=== PATIENT | female | born 1955 | race African-American/Black ===

== ENCOUNTER 2019-05-23 13:19 | Inpatient (IN) ==
[2019-05-23 15:11] LABS: Basophils % 0.5 % (0.0-0.8); Eosinophils % 0.9 % (0.00-10.9); Hematocrit 38.2 VOL% (35.7-47.0); Immature Granulocytes % 0.9 %; Immature Granulocytes Absolute 0.04 #; Lymphocytes # 1.3 10*3/uL (1.4-4.0); Mean Corpuscular HGB Conc 31.4 GM/DL (32-36); Mean Platelet Volume 10.7 FL (9.6-12.0); Monocytes % 9.6 % (1.7-12.7); Neutrophils % 58.1 % (38.7-73.9); Platelet Count 185 T/CUMM (130-400); Red Blood Count 4.44 MC/CUMM (3.8-5.5); Red Cell Distribution Width 12.6 % (9.3-17.3); White Blood Count 4.3 T/CUMM (4-12)
[2019-05-23 16:44] LABS: Alanine Aminotransferase 17 U/L (13-56); Albumin 1.1 G/DL (3.4-5.0); Alkaline Phosphatase 97 U/L (45-117); Aspartate Amino Transferase 45 U/L (0-37); Bilirubin,Total < 0.39 MG/DL (0.2-1.0); Blood Urea Nitrogen 59 MG/DL (7-18); Calcium 6.6 MG/DL (8.5-10.1); Estimated Glom Filtration Rate 14 ML/MIN; Glucose 157 MG/DL (74-106); Osmolality,Calculated 296.5 MOS/KG (273-304); Total Protein 4.8 G/DL (6.4-8.3)
[2019-05-23 17:10] LABS: Band Neutrophils 2 % (0-10); Lymphocytes 23 % (20-55); Platelet Estimate Normal; Segmented Neutrophils 62 % (50-85); Total Cells Counted 100
[2019-05-23] MEDS ORDERED: hydrALAZINE 20 MG/1 ML VIAL IV PRN (17:50)
[2019-05-23] MEDS ORDERED: DEXTROSE 10% 250 ML BAG IV PRN (17:50)
[2019-05-23] MEDS ORDERED: DEXTROSE 50% 25 GM/50 ML VIAL IV PRN (17:50)
[2019-05-23] MEDS ORDERED: ONDANSETRON 4 MG/2 ML VIAL IV PRN (17:50)
[2019-05-23] MEDS ORDERED: ACETAMINOPHEN 325 MG TABLET PO PRN (17:50)
[2019-05-23] MEDS ORDERED: GLUCAGON 1 MG VIAL IM PRN ×2 (17:50)
[2019-05-23] MEDS ORDERED: AZITHROMYCIN INJ 500 MG in SODIUM CHLORIDE 0.9% 250 ML IV SCH (18:00)
[2019-05-23] MEDS ORDERED: predniSONE 5 MG TABLET PO PRN (18:15)
[2019-05-23] MEDS ORDERED: AZITHROMYCIN 250 MG TABLET PO ONE (21:00)
[2019-05-23] MEDS ORDERED: AZITHROMYCIN 250 MG TABLET PO SCH (21:00)
[2019-05-23] MEDS ORDERED: lisinopriL 20 MG TABLET PO SCH (21:00)
[2019-05-23] MEDS: traZODone 50 MG TABLET PO SCH (22:48)
[2019-05-23] MEDS: SODIUM CHLORIDE 0.9% 1,000 ML IV SCH (22:48)
[2019-05-23] MEDS: PANTOPRAZOLE 40 MG TABLET PO SCH (22:49)
[2019-05-23] MEDS: ISOSORBIDE DINITRATE 20 MG TABLET PO SCH (22:49)
[2019-05-23] MEDS: LATANOPROST 0.005% OPH SOLN 2.5 ML BOTTLE BOTH EYES SCH (22:50)
[2019-05-23] MEDS: cefTRIAXone 1,000 MG in SYRINGE 1 EACH IV SCH (22:52)
[2019-05-23] MEDS: INSULIN LISPRO 100 UNIT/ML SUBCUT SCH (23:01)
[2019-05-23] MEDS: INSULIN GLARGINE 100 UNIT/ML SUBCUT SCH (23:01)
[2019-05-23] MEDS: HEPARIN 5,000 UNIT/1 ML VIAL SUBCUT SCH (23:02)
[2019-05-24 04:06] LABS: ABG Base Excess -5.5 MMOL/L (-2.5-2.5); ABG HCO3 19.9 MMOL/L (20-26); ABG Oxygen Saturation 94.6 % (95-100); ABG PCO2 30.4 MM HG (35-48); ABG PO2 99.9 MM HG (80-95); ABG TCO2 16.3 MMOL/L (23-27)
[2019-05-24 05:49] LABS: Basophils % 0.4 % (0.0-0.8); Eosinophils % 0.4 % (0.00-10.9); Hemoglobin 12.1 GM/DL (12.0-16.0); Immature Granulocytes % 0.7 %; Immature Granulocytes Absolute 0.03 #; Lymphocytes # 1.2 10*3/uL (1.4-4.0); Mean Corpuscular HGB Conc 31.8 GM/DL (32-36); Mean Corpuscular Volume 83.9 FL (87-102); Mean Platelet Volume 10.7 FL (9.6-12.0); Monocytes % 9.7 % (1.7-12.7); Neutrophils % 62.8 % (38.7-73.9); Platelet Count 219 T/CUMM (130-400); Red Blood Count 4.53 MC/CUMM (3.8-5.5); Red Cell Distribution Width 12.6 % (9.3-17.3); White Blood Count 4.5 T/CUMM (4-12)
[2019-05-24 06:19] LABS: Eosinophils 1 % (0-10); Lymphocytes 22 % (20-55); Platelet Estimate Adequate; Segmented Neutrophils 62 % (50-85); Total Cells Counted 100
[2019-05-24 06:20] LABS: Alanine Aminotransferase 22 U/L (13-56); Alkaline Phosphatase 94 U/L (45-117); Aspartate Amino Transferase 41 U/L (0-37); Bilirubin,Total < 0.39 MG/DL (0.2-1.0); Blood Urea Nitrogen 65 MG/DL (7-18); Calcium 7.3 MG/DL (8.5-10.1); Estimated Glom Filtration Rate 11 ML/MIN; Glucose 164 MG/DL (74-106); HDL Cholesterol 22 MG/DL (40-60); Osmolality,Calculated 295.8 MOS/KG (273-304); Risk Ratio 8.59; Total Protein 5.4 G/DL (6.4-8.3); Triglycerides 398 MG/DL (2-150); VLDL CHOLESTEROL 79.6 MG/DL
[2019-05-24] MEDS: HEPARIN 5,000 UNIT/1 ML VIAL SUBCUT SCH ×3 (06:23→22:10)
[2019-05-24] MEDS ORDERED: POTASSIUM CHLORIDE 20 MEQ TABLET PO ONE ×2 (06:42→12:00)
[2019-05-24] MEDS ORDERED: POTASSIUM CHLORIDE 20 MEQ/15 ML UDCUP PER TUBE PRN (08:11)
[2019-05-24] MEDS ORDERED: PANTOPRAZOLE 40 MG TABLET PO SCH (09:00)
[2019-05-24] MEDS ORDERED: LEFLUNOMIDE 10 MG TABLET PO SCH (09:00)
[2019-05-24] MEDS: CITALOPRAM 20 MG TABLET PO SCH (09:12)
[2019-05-24] MEDS: ROSUVASTATIN 20 MG TABLET PO SCH (09:13)
[2019-05-24] MEDS: CLOPIDOGREL 75 MG TABLET PO SCH (09:13)
[2019-05-24] MEDS: INSULIN LISPRO 100 UNIT/ML SUBCUT SCH ×3 (09:13→17:26)
[2019-05-24] MEDS: ISOSORBIDE DINITRATE 20 MG TABLET PO SCH ×3 (09:13→22:10)
[2019-05-24] MEDS: PANTOPRAZOLE 40 MG TABLET PO SCH ×2 (09:13→22:10)
[2019-05-24] MEDS: SODIUM CHLORIDE 0.9% 1,000 ML IV SCH ×2 (09:22→22:05)
[2019-05-24] MEDS: cefTRIAXone 1,000 MG in SYRINGE 1 EACH IV SCH (22:10)
[2019-05-24] MEDS: traZODone 50 MG TABLET PO SCH (22:10)
[2019-05-24] MEDS: AZITHROMYCIN 250 MG TABLET PO SCH (22:10)
[2019-05-24] MEDS: LATANOPROST 0.005% OPH SOLN 2.5 ML BOTTLE BOTH EYES SCH (22:10)
[2019-05-24] MEDS: INSULIN GLARGINE 100 UNIT/ML SUBCUT SCH (23:07)
[2019-05-25 05:48] LABS: Basophils % 0.5 % (0.0-0.8); Eosinophils # 0.1 10*3/uL (0.0-0.87); Eosinophils % 2.4 % (0.00-10.9); Hematocrit 34.5 VOL% (35.7-47.0); Hemoglobin 10.7 GM/DL (12.0-16.0); Immature Granulocytes % 2.9 %; Immature Granulocytes Absolute 0.12 #; Lymphocytes # 1.3 10*3/uL (1.4-4.0); Lymphocytes % 31.3 % (21.3-54.2); Mean Corpuscular Volume 86.9 FL (87-102); Mean Platelet Volume 10.4 FL (9.6-12.0); Monocytes % 8.7 % (1.7-12.7); Neutrophils % 54.2 % (38.7-73.9); Platelet Count 240 T/CUMM (130-400); Red Blood Count 3.97 MC/CUMM (3.8-5.5); Red Cell Distribution Width 12.9 % (9.3-17.3); White Blood Count 4.2 T/CUMM (4-12)
[2019-05-25 06:15] LABS: Bilirubin,Total 0.4 MG/DL (0.2-1.0); Calcium 7.4 MG/DL (8.5-10.1); Osmolality,Calculated 299.4 MOS/KG (273-304); Total Protein 5.1 G/DL (6.4-8.3)
[2019-05-25 06:19] LABS: Eosinophils 1 % (0-10); Lymphocytes 29 % (20-55); Segmented Neutrophils 58 % (50-85); Total Cells Counted 100
[2019-05-25 06:20] LABS: Atypical Lymphocytes Few; Hypochromasia 1+; Microcytosis Slight
[2019-05-25 06:21] LABS: Platelet Estimate Normal
[2019-05-25] MEDS: SODIUM CHLORIDE 0.9% 1,000 ML IV SCH ×2 (06:53→16:06)
[2019-05-25] MEDS: HEPARIN 5,000 UNIT/1 ML VIAL SUBCUT SCH ×3 (07:03→21:30)
[2019-05-25] MEDS: INSULIN LISPRO 100 UNIT/ML SUBCUT SCH ×3 (10:48→17:31)
[2019-05-25] MEDS: ASPIRIN CHEW 81 MG TABLET PO SCH (10:49)
[2019-05-25] MEDS: ROSUVASTATIN 20 MG TABLET PO SCH (10:50)
[2019-05-25] MEDS: CITALOPRAM 20 MG TABLET PO SCH (10:50)
[2019-05-25] MEDS: ISOSORBIDE DINITRATE 20 MG TABLET PO SCH ×3 (10:51→21:30)
[2019-05-25] MEDS: PANTOPRAZOLE 40 MG TABLET PO SCH ×2 (10:51→21:30)
[2019-05-25] MEDS: CLOPIDOGREL 75 MG TABLET PO SCH (10:51)
[2019-05-25] MEDS ORDERED: POTASSIUM CHLORIDE 20 MEQ TABLET PO ONE (15:00)
[2019-05-25] MEDS: cefTRIAXone 1,000 MG in SYRINGE 1 EACH IV SCH (21:25)
[2019-05-25] MEDS: traZODone 50 MG TABLET PO SCH (21:30)
[2019-05-25] MEDS: AZITHROMYCIN 250 MG TABLET PO SCH (21:30)
[2019-05-25] MEDS: LATANOPROST 0.005% OPH SOLN 2.5 ML BOTTLE BOTH EYES SCH (21:30)
[2019-05-25] MEDS: INSULIN GLARGINE 100 UNIT/ML SUBCUT SCH (21:49)
[2019-05-26] MEDS: SODIUM CHLORIDE 0.9% 1,000 ML IV SCH ×4 (01:40→18:13)
[2019-05-26] MEDS: HEPARIN 5,000 UNIT/1 ML VIAL SUBCUT SCH ×3 (05:10→21:00)
[2019-05-26] MEDS: INSULIN LISPRO 100 UNIT/ML SUBCUT SCH ×3 (09:02→16:30)
[2019-05-26] MEDS: ROSUVASTATIN 20 MG TABLET PO SCH (09:03)
[2019-05-26] MEDS: ASPIRIN CHEW 81 MG TABLET PO SCH (09:03)
[2019-05-26] MEDS: CITALOPRAM 20 MG TABLET PO SCH (09:03)
[2019-05-26] MEDS: ISOSORBIDE DINITRATE 20 MG TABLET PO SCH ×3 (09:04→21:00)
[2019-05-26] MEDS: PANTOPRAZOLE 40 MG TABLET PO SCH ×2 (09:04→21:00)
[2019-05-26] MEDS: CLOPIDOGREL 75 MG TABLET PO SCH (09:04)
[2019-05-26 15:43] LABS: Basophils % 0.8 % (0.0-0.8); Hematocrit 37.7 VOL% (35.7-47.0); Hemoglobin 11.6 GM/DL (12.0-16.0); Immature Granulocytes % 4.1 %; Immature Granulocytes Absolute 0.16 #; Lymphocytes # 0.9 10*3/uL (1.4-4.0); Lymphocytes % 23.8 % (21.3-54.2); Mean Corpuscular HGB Conc 30.8 GM/DL (32-36); Mean Corpuscular Volume 87.7 FL (87-102); Mean Platelet Volume 9.7 FL (9.6-12.0); Monocytes % 7.2 % (1.7-12.7); Neutrophils % 63.1 % (38.7-73.9); Platelet Count 299 T/CUMM (130-400); Red Cell Distribution Width 13.2 % (9.3-17.3); White Blood Count 3.9 T/CUMM (4-12)
[2019-05-26 16:21] LABS: Lymphocytes 27 % (20-55); Nucleated Red Blood Cells 1 (0-5); Platelet Estimate Normal; Segmented Neutrophils 68 % (50-85); Total Cells Counted 100
[2019-05-26] MEDS: INSULIN GLARGINE 100 UNIT/ML SUBCUT SCH (20:47)
[2019-05-26] MEDS: cefTRIAXone 1,000 MG in SYRINGE 1 EACH IV SCH (20:50)
[2019-05-26] MEDS: LATANOPROST 0.005% OPH SOLN 2.5 ML BOTTLE BOTH EYES SCH (21:00)
[2019-05-26] MEDS: traZODone 50 MG TABLET PO SCH (21:00)
[2019-05-26] MEDS: AZITHROMYCIN 250 MG TABLET PO SCH (21:00)
[2019-05-27] MEDS: SODIUM CHLORIDE 0.9% 1,000 ML IV SCH (02:32)
[2019-05-27] MEDS: HEPARIN 5,000 UNIT/1 ML VIAL SUBCUT SCH ×2 (06:05→15:11)
[2019-05-27 07:11] LABS: Basophils % 0.9 % (0.0-0.8); Eosinophils # 0.1 10*3/uL (0.0-0.87); Eosinophils % 1.9 % (0.00-10.9); Hematocrit 34.9 VOL% (35.7-47.0); Hemoglobin 10.5 GM/DL (12.0-16.0); Immature Granulocytes % 3.5 %; Immature Granulocytes Absolute 0.11 #; Lymphocytes # 1.1 10*3/uL (1.4-4.0); Mean Corpuscular HGB Conc 30.1 GM/DL (32-36); Mean Corpuscular Volume 87.9 FL (87-102); Mean Platelet Volume 10.3 FL (9.6-12.0); Monocytes % 13.8 % (1.7-12.7); Neutrophils % 46.9 % (38.7-73.9); Platelet Count 273 T/CUMM (130-400); Red Blood Count 3.97 MC/CUMM (3.8-5.5); Red Cell Distribution Width 13.1 % (9.3-17.3); White Blood Count 3.2 T/CUMM (4-12)
[2019-05-27 07:32] LABS: Atypical Lymphocytes Few; Eosinophils 4 % (0-10); Hypochromasia 1+; Lymphocytes 27 % (20-55); Microcytosis Slight; Platelet Estimate Adequate; Segmented Neutrophils 60 % (50-85); Total Cells Counted 100
[2019-05-27 07:35] LABS: Alanine Aminotransferase 53 U/L (13-56); Albumin 1.2 G/DL (3.4-5.0); Alkaline Phosphatase 91 U/L (45-117); Aspartate Amino Transferase 78 U/L (0-37); Bilirubin,Total < 0.39 MG/DL (0.2-1.0); Blood Urea Nitrogen 49 MG/DL (7-18); Calcium 8.2 MG/DL (8.5-10.1); Estimated Glom Filtration Rate 13 ML/MIN; Glucose 121 MG/DL (74-106); Osmolality,Calculated 299.8 MOS/KG (273-304); Total Protein 5.6 G/DL (6.4-8.3)
[2019-05-27] MEDS: INSULIN LISPRO 100 UNIT/ML SUBCUT SCH ×2 (09:12→14:35)
[2019-05-27] MEDS: ISOSORBIDE DINITRATE 20 MG TABLET PO SCH (09:13)
[2019-05-27] MEDS: ASPIRIN CHEW 81 MG TABLET PO SCH (09:13)
[2019-05-27] MEDS: PANTOPRAZOLE 40 MG TABLET PO SCH (09:13)
[2019-05-27] MEDS: CITALOPRAM 20 MG TABLET PO SCH (09:13)
[2019-05-27] MEDS: ROSUVASTATIN 20 MG TABLET PO SCH (09:13)
[2019-05-27] MEDS: CLOPIDOGREL 75 MG TABLET PO SCH (09:13)
[2019-05-27] MEDS ORDERED: LEVOFLOXACIN 500 MG TABLET PO SCH (13:30)
[2019-05-27 16:09] VITALS: BP 167/86
== END 2019-05-27 16:30 | disposition home or self-care (01) | DRG 177 ==
LOC: EDBD → EDUNIT# → N.ED 13:19 → N.EDINP 17:50 → EDUNIT# 17:50 → SUATTDRO 17:50 → SUPCPDRO 17:50 → N.EDINP 20:25 → N.2E 20:32 → N.2W 05-26 10:27
PROVIDERS: ADMIT Internal Medicine; ATTEND Internal Medicine

== ENCOUNTER 2019-10-11 13:37 | Observation (INO) ==
[2019-10-11 14:26] LABS: Basophils % 0.6 % (0.0-0.8); Eosinophils # 0.1 10*3/uL (0.0-0.87); Eosinophils % 2.8 % (0.00-10.9); Hematocrit 37.3 VOL% (35.7-47.0); Hemoglobin 11.6 GM/DL (12.0-16.0); Immature Granulocytes % 0.2 %; Immature Granulocytes Absolute 0.01 #; Lymphocytes # 2.1 10*3/uL (1.4-4.0); Lymphocytes % 45.5 % (21.3-54.2); Mean Corpuscular HGB Conc 31.1 GM/DL (32-36); Mean Platelet Volume 10.1 FL (9.6-12.0); Neutrophils % 36.9 % (38.7-73.9); Platelet Count 245 T/CUMM (130-400); Red Blood Count 4.39 MC/CUMM (3.8-5.5); Red Cell Distribution Width 13.5 % (9.3-17.3); White Blood Count 4.7 T/CUMM (4-12)
[2019-10-11 14:46] LABS: Alanine Aminotransferase 31 U/L (13-56); Albumin 2.2 G/DL (3.4-5.0); Alkaline Phosphatase 105 U/L (45-117); Aspartate Amino Transferase 25 U/L (0-37); Bilirubin,Total < 0.39 MG/DL (0.2-1.0); Blood Urea Nitrogen 30 MG/DL (7-18); Calcium 9.2 MG/DL (8.5-10.1); Estimated Glom Filtration Rate 26 ML/MIN; Glucose 54 MG/DL (74-106); Osmolality,Calculated 286.1 MOS/KG (273-304)
[2019-10-11 14:49] LABS: PT Patient Result 10.5 SECS (9.8-11.9); Partial Thromboplastin Time 26.5 SECS (23.9-33.8)
[2019-10-11] MEDS ORDERED: DEXTROSE 50% 25 GM/50 ML VIAL IV STA (15:24)
[2019-10-11 15:35] LABS: Eosinophils 4 % (0-10); Lymphocytes 48 % (20-55); Segmented Neutrophils 36 % (50-85); Total Cells Counted 100
[2019-10-11 15:36] LABS: Platelet Estimate Adequate
[2019-10-11] MEDS ORDERED: ONDANSETRON 4 MG/2 ML VIAL IV PRN (15:54)
[2019-10-11] MEDS ORDERED: DEXTROSE 50% 25 GM/50 ML VIAL IV PRN (15:54)
[2019-10-11] MEDS ORDERED: GLUCAGON 1 MG VIAL IM PRN (15:54)
[2019-10-11] MEDS ORDERED: DEXTROSE 50% 25 GM/50 ML SYRINGE IV ONE (16:24)
[2019-10-11 17:01] LABS: Risk Ratio 4.75; Thyroid Stimulating Hormone 1.01 uIU/ml (0.358-3.74)
[2019-10-11 17:27] LABS: Apearance,Urine CLEAR (Clear); Bacteria,Urine Occasional /HPF (Few); Bilirubin,Urine Negative (Negative); Blood, Urine Negative (Negative); Glucose,Urine (UA) 50 mg/dL (Negative); Hyaline Casts,Urine 1 /LPF (0-3); Ketones,Urine Negative (Negative); Nitrite,Urine Negative (Negative); Protein,Urine >=500 MG/DL; RBC,Urine 1 /HPF (0-4); Squamous Epithelial Cell,Urine Occasional /HPF (0-10); Urine Color Yellow (Yellow); Urine Specific Gravity 1.011 (1.001-1.035); Urine Urobilinogen < 2.0 EU/DL (0.2-1.0); WBC,Urine <1 /HPF (0-6)
[2019-10-11] MEDS: INSULIN LISPRO 100 UNIT/ML SUBCUT SCH ×2 (18:51→20:58)
[2019-10-11] MEDS: LACTATED RINGERS 1,000 ML IV SCH (20:55)
[2019-10-11] MEDS: carvediloL 25 MG TABLET PO SCH (20:56)
[2019-10-11] MEDS ORDERED: ENOXAPARIN 30 MG/0.3 ML SYRINGE SUBCUT SCH (21:00)
[2019-10-11] MEDS ORDERED: LATANOPROST 0.005% OPH SOLN 2.5 ML BOTTLE BOTH EYES SCH (21:00)
[2019-10-11 22:37] LABS: Barbiturates Screen,Urine Negative (Negative); Benzodiazepines Screen,Urine Negative (Negative); Cannabinoid Screen,Urine Negative (Negative); Opiate Screen,Urine Negative (Negative); Phencyclidine Screen,Urine Negative (Negative)
[2019-10-12 05:50] LABS: Basophils % 0.7 % (0.0-0.8); Eosinophils # 0.1 10*3/uL (0.0-0.87); Eosinophils % 2.9 % (0.00-10.9); Hematocrit 33.5 VOL% (35.7-47.0); Hemoglobin 10.5 GM/DL (12.0-16.0); Immature Granulocytes % 0.2 %; Immature Granulocytes Absolute 0.01 #; Lymphocytes # 1.7 10*3/uL (1.4-4.0); Lymphocytes % 40.1 % (21.3-54.2); Mean Corpuscular HGB Conc 31.3 GM/DL (32-36); Mean Corpuscular Volume 85.9 FL (87-102); Mean Platelet Volume 10.3 FL (9.6-12.0); Monocytes % 17.3 % (1.7-12.7); Neutrophils % 38.8 % (38.7-73.9); Platelet Count 210 T/CUMM (130-400); Red Cell Distribution Width 13.7 % (9.3-17.3); White Blood Count 4.2 T/CUMM (4-12)
[2019-10-12 06:09] LABS: Calcium 8.5 MG/DL (8.5-10.1)
[2019-10-12 06:37] LABS: Eosinophils 4 % (0-10); Hypochromasia 1+; Lymphocytes 44 % (20-55); Ovalocytes Slight; Platelet Estimate Adequate; Segmented Neutrophils 42 % (50-85); Total Cells Counted 100
[2019-10-12] MEDS: carvediloL 25 MG TABLET PO SCH (08:57)
[2019-10-12] MEDS: INSULIN LISPRO 100 UNIT/ML SUBCUT SCH ×2 (08:59→11:42)
[2019-10-12] MEDS: LACTATED RINGERS 1,000 ML IV SCH (08:59)
[2019-10-12] MEDS ORDERED: ROSUVASTATIN 20 MG TABLET PO SCH (09:00)
[2019-10-12] MEDS ORDERED: ASPIRIN CHEW 81 MG TABLET PO SCH (09:00)
[2019-10-12] MEDS ORDERED: CLOPIDOGREL 75 MG TABLET PO SCH (09:00)
[2019-10-12] MEDS ORDERED: amLODIPine 5 MG TABLET PO SCH (09:00)
[2019-10-12 16:26] VITALS: BP 148/96
[2019-10-12] MEDS ORDERED: GABAPENTIN 300 MG CAPSULE PO SCH (21:00)
== END 2019-10-12 16:47 | disposition home or self-care (01) ==
LOC: EDBD → EDUNIT# → N.EDINP 13:37 → N.ED 13:37 → N.TELES 17:40
PROVIDERS: ADMIT Emergency Medicine; ATTEND Emergency Medicine

== ENCOUNTER 2020-01-17 10:34 | Observation (INO) ==
[~2020-01-17 10:34] MED LIST: MAGNESIUM SULF RIDER 2 GM in PREMIX 1 EACH IV PRN; MAGNESIUM SULF RIDER 4 GM in PREMIX 1 EACH IV PRN; ONDANSETRON 4 MG/2 ML VIAL IV PRN; PANTOPRAZOLE 40 MG TABLET PO SCH; POTASSIUM CHLORIDE 20 MEQ TABLET PO PRN
[2020-01-17 12:34] LABS: Basophils % 0.6 % (0.0-0.8); Eosinophils # 0.1 10*3/uL (0.0-0.87); Hematocrit 33.5 VOL% (35.7-47.0); Immature Granulocytes % 0.3 %; Immature Granulocytes Absolute 0.01 #; Lymphocytes # 1.4 10*3/uL (1.4-4.0); Lymphocytes % 41.1 % (21.3-54.2); Mean Corpuscular HGB Conc 29.9 GM/DL (32-36); Mean Platelet Volume 9.5 FL (9.6-12.0); Platelet Count 215 T/CUMM (130-400); Red Blood Count 3.85 MC/CUMM (3.8-5.5); Red Cell Distribution Width 14.2 % (9.3-17.3); White Blood Count 3.5 T/CUMM (4-12)
[2020-01-17 13:14] LABS: Albumin 2.4 G/DL (3.4-5.0); Bilirubin,Total 1.4 MG/DL (0.2-1.0); Calcium 9.1 MG/DL (8.5-10.1); Osmolality,Calculated 293.8 MOS/KG (273-304); Thyroid Stimulating Hormone 1.41 uIU/ml (0.358-3.74)
[2020-01-17] MEDS ORDERED: FLUCONAZOLE 150 MG TABLET PO PRN (13:50)
[2020-01-17] MEDS ORDERED: BENZONATATE 100 MG CAPSULE PO PRN (13:50)
[2020-01-17] MEDS ORDERED: NITROGLYCERIN SL 0.4 MG TABLET SL PRN (13:50)
[2020-01-17] MEDS ORDERED: ALBUTEROL 2.5 MG/3 ML NEB RESP TX PRN (13:50)
[2020-01-17] MEDS ORDERED: predniSONE 5 MG TABLET PO PRN (13:50)
[2020-01-17] MEDS ORDERED: FLUTICASONE 50 MCG NASAL SPRAY 16 GM BOTTLE BOTH NARES PRN (13:50)
[2020-01-17] MEDS ORDERED: POTASSIUM CHLORIDE RIDER 10 MEQ in PREMIX 1 EACH IV PRN (13:52)
[2020-01-17] MEDS ORDERED: MAGNESIUM SULF RIDER 2 GM in PREMIX 1 EACH IV PRN (13:52)
[2020-01-17] MEDS: SODIUM CHLORIDE 0.9% 1,000 ML IV SCH (14:16)
[2020-01-17] MEDS: INSULIN LISPRO 100 UNIT/ML SUBCUT SCH (15:53)
[2020-01-17] MEDS: ISOSORBIDE DINITRATE 20 MG TABLET PO SCH ×2 (15:53→20:47)
[2020-01-17] MEDS ORDERED: FUROSEMIDE 40 MG TABLET PO SCH (16:00)
[2020-01-17] MEDS: busPIRone 10 MG TABLET PO SCH (20:47)
[2020-01-17] MEDS: carvediloL 25 MG TABLET PO SCH (20:47)
[2020-01-17] MEDS: LATANOPROST 0.005% OPH SOLN 2.5 ML BOTTLE BOTH EYES SCH (20:48)
[2020-01-17] MEDS: PANTOPRAZOLE 40 MG TABLET PO SCH (20:48)
[2020-01-17] MEDS: POTASSIUM CHLORIDE 10 MEQ TABLET PO SCH (20:48)
[2020-01-18] MEDS: SODIUM CHLORIDE 0.9% 1,000 ML IV SCH (04:09)
[2020-01-18 05:43] LABS: Basophils % 0.8 % (0.0-0.8); Eosinophils # 0.1 10*3/uL (0.0-0.87); Eosinophils % 3.9 % (0.00-10.9); Hematocrit 31.6 VOL% (35.7-47.0); Hemoglobin 9.6 GM/DL (12.0-16.0); Immature Granulocytes % 0.3 %; Immature Granulocytes Absolute 0.01 #; Lymphocytes # 1.3 10*3/uL (1.4-4.0); Lymphocytes % 37.3 % (21.3-54.2); Mean Corpuscular HGB Conc 30.4 GM/DL (32-36); Mean Corpuscular Volume 85.2 FL (87-102); Mean Platelet Volume 9.8 FL (9.6-12.0); Monocytes % 13.4 % (1.7-12.7); Neutrophils % 44.3 % (38.7-73.9); Platelet Count 206 T/CUMM (130-400); Red Blood Count 3.71 MC/CUMM (3.8-5.5); Red Cell Distribution Width 14.4 % (9.3-17.3); White Blood Count 3.6 T/CUMM (4-12)
[2020-01-18 06:18] LABS: Albumin 2.3 G/DL (3.4-5.0); Bilirubin,Total 0.8 MG/DL (0.2-1.0); Calcium 8.7 MG/DL (8.5-10.1); Osmolality,Calculated 295.5 MOS/KG (273-304); Total Protein 6.6 G/DL (6.4-8.3)
[2020-01-18] MEDS: INSULIN LISPRO 100 UNIT/ML SUBCUT SCH ×3 (08:52→17:43)
[2020-01-18] MEDS: carvediloL 25 MG TABLET PO SCH ×2 (08:53→21:46)
[2020-01-18] MEDS: ROSUVASTATIN 20 MG TABLET PO SCH (08:53)
[2020-01-18] MEDS: PANTOPRAZOLE 40 MG TABLET PO SCH ×2 (08:53→21:45)
[2020-01-18] MEDS: CLOPIDOGREL 75 MG TABLET PO SCH (08:53)
[2020-01-18] MEDS: POTASSIUM CHLORIDE 10 MEQ TABLET PO SCH ×2 (08:53→21:46)
[2020-01-18] MEDS: ISOSORBIDE DINITRATE 20 MG TABLET PO SCH ×3 (08:53→21:44)
[2020-01-18] MEDS: ASPIRIN EC 81 MG TABLET PO SCH (08:53)
[2020-01-18] MEDS: busPIRone 10 MG TABLET PO SCH ×2 (08:53→21:44)
[2020-01-18] MEDS: LEFLUNOMIDE 10 MG TABLET PO SCH (08:55)
[2020-01-18] MEDS ORDERED: FUROSEMIDE 80 MG TABLET PO SCH (09:00)
[2020-01-18] MEDS ORDERED: diphenhydrAMINE CAP 50 MG CAPSULE PO ONE (12:30)
[2020-01-18] MEDS ORDERED: DIAZEPAM 5 MG TABLET PO ONE (12:30)
[2020-01-18] MEDS ORDERED: DEXTROSE 50% 25 GM/50 ML VIAL IV ONE (13:35)
[2020-01-18] MEDS ORDERED: MAGNESIUM SULF RIDER 2 GM in PREMIX 1 EACH IV PRN (14:15)
[2020-01-18] MEDS ORDERED: POTASSIUM CHLORIDE RIDER 10 MEQ in PREMIX 1 EACH IV PRN (14:15)
[2020-01-18] MEDS: diphenhydrAMINE CAP 25 MG CAPSULE PO SCH ×2 (15:29→21:46)
[2020-01-18] MEDS: FAMOTIDINE 20 MG/2 ML VIAL IV SCH (15:30)
[2020-01-18] MEDS: methylPREDNISolone SOD SUC 125 MG/2 ML VIAL IV SCH ×2 (15:34→21:51)
[2020-01-18] MEDS ORDERED: SODIUM CHLORIDE 0.45% 1,000 ML IV SCH (18:30)
[2020-01-18] MEDS: SODIUM CHLORIDE 0.45% 1,000 ML IV SCH (18:33)
[2020-01-18] MEDS: LATANOPROST 0.005% OPH SOLN 2.5 ML BOTTLE BOTH EYES SCH (21:59)
[2020-01-19] MEDS: INSULIN LISPRO 100 UNIT/ML SUBCUT SCH ×8 (00:35→20:19)
[2020-01-19] MEDS: diphenhydrAMINE CAP 25 MG CAPSULE PO SCH ×5 (02:49→23:31)
[2020-01-19] MEDS: FAMOTIDINE 20 MG/2 ML VIAL IV SCH ×2 (02:49→15:27)
[2020-01-19] MEDS: SODIUM CHLORIDE 0.45% 1,000 ML IV SCH ×2 (04:44→15:26)
[2020-01-19 05:20] LABS: Basophils % 0.3 % (0.0-0.8); Hematocrit 32.5 VOL% (35.7-47.0); Immature Granulocytes % 0.3 %; Immature Granulocytes Absolute 0.01 #; Lymphocytes # 0.6 10*3/uL (1.4-4.0); Lymphocytes % 18.1 % (21.3-54.2); Mean Corpuscular HGB Conc 30.8 GM/DL (32-36); Mean Corpuscular Volume 84.4 FL (87-102); Mean Platelet Volume 10.3 FL (9.6-12.0); Monocytes % 1.7 % (1.7-12.7); Neutrophils % 79.6 % (38.7-73.9); Platelet Count 219 T/CUMM (130-400); Red Blood Count 3.85 MC/CUMM (3.8-5.5); White Blood Count 3.4 T/CUMM (4-12)
[2020-01-19 05:49] LABS: Calcium 8.9 MG/DL (8.5-10.1); Osmolality,Calculated 299.5 MOS/KG (273-304)
[2020-01-19 05:55] LABS: Calcium 8.6 MG/DL (8.5-10.1); Osmolality,Calculated 299.5 MOS/KG (273-304)
[2020-01-19] MEDS ORDERED: diphenhydrAMINE CAP 25 MG CAPSULE PO ONE (06:00)
[2020-01-19] MEDS: methylPREDNISolone SOD SUC 125 MG/2 ML VIAL IV SCH ×3 (07:08→23:28)
[2020-01-19] MEDS ORDERED: DIAZEPAM 5 MG TABLET ONE (07:55)
[2020-01-19] MEDS ORDERED: DIAZEPAM 5 MG TABLET PO ONE (09:30)
[2020-01-19] MEDS: PANTOPRAZOLE 40 MG TABLET PO SCH ×2 (09:30→20:14)
[2020-01-19] MEDS: ASPIRIN EC 81 MG TABLET PO SCH (09:30)
[2020-01-19] MEDS: carvediloL 25 MG TABLET PO SCH ×2 (09:31→20:14)
[2020-01-19] MEDS: CLOPIDOGREL 75 MG TABLET PO SCH (09:32)
[2020-01-19] MEDS: ISOSORBIDE DINITRATE 20 MG TABLET PO SCH ×3 (09:32→20:15)
[2020-01-19] MEDS: LEFLUNOMIDE 10 MG TABLET PO SCH (09:32)
[2020-01-19] MEDS: POTASSIUM CHLORIDE 10 MEQ TABLET PO SCH ×2 (09:32→20:14)
[2020-01-19] MEDS: ROSUVASTATIN 20 MG TABLET PO SCH (09:32)
[2020-01-19] MEDS: busPIRone 10 MG TABLET PO SCH ×2 (09:36→20:19)
[2020-01-19] MEDS ORDERED: LIDOCAINE 1%/EPI INJ 20 ML VIAL ONE (09:57)
[2020-01-19] MEDS ORDERED: HEPARIN/NACL 0.9% 2 UNITS/ML 500 ML IV ONE (09:57)
[2020-01-19] MEDS ORDERED: FUROSEMIDE 40 MG/4 ML VIAL IV ONE (10:39)
[2020-01-19] MEDS: LATANOPROST 0.005% OPH SOLN 2.5 ML BOTTLE BOTH EYES SCH (20:15)
[2020-01-20] MEDS: SODIUM CHLORIDE 0.45% 1,000 ML IV SCH ×4 (01:42→22:45)
[2020-01-20] MEDS: FAMOTIDINE 20 MG/2 ML VIAL IV SCH ×2 (05:13→14:47)
[2020-01-20] MEDS: methylPREDNISolone SOD SUC 125 MG/2 ML VIAL IV SCH ×3 (05:30→22:25)
[2020-01-20 05:48] LABS: Hematocrit 28.2 VOL% (35.7-47.0); Hemoglobin 8.8 GM/DL (12.0-16.0); Immature Granulocytes % 0.5 %; Immature Granulocytes Absolute 0.04 #; Lymphocytes # 0.8 10*3/uL (1.4-4.0); Lymphocytes % 10.7 % (21.3-54.2); Mean Corpuscular HGB Conc 31.2 GM/DL (32-36); Mean Corpuscular Volume 84.9 FL (87-102); Mean Platelet Volume 10.3 FL (9.6-12.0); Monocytes % 2.1 % (1.7-12.7); Neutrophils % 86.7 % (38.7-73.9); Platelet Count 194 T/CUMM (130-400); Red Blood Count 3.32 MC/CUMM (3.8-5.5); Red Cell Distribution Width 14.3 % (9.3-17.3); White Blood Count 7.3 T/CUMM (4-12)
[2020-01-20 06:01] LABS: Calcium 8.5 MG/DL (8.5-10.1); Osmolality,Calculated 302.7 MOS/KG (273-304)
[2020-01-20] MEDS: INSULIN LISPRO 100 UNIT/ML SUBCUT SCH ×8 (10:50→21:02)
[2020-01-20] MEDS: ASPIRIN EC 81 MG TABLET PO SCH (10:59)
[2020-01-20] MEDS: LEFLUNOMIDE 10 MG TABLET PO SCH (10:59)
[2020-01-20] MEDS: busPIRone 10 MG TABLET PO SCH ×2 (10:59→21:03)
[2020-01-20] MEDS: ROSUVASTATIN 20 MG TABLET PO SCH (10:59)
[2020-01-20] MEDS: ISOSORBIDE DINITRATE 20 MG TABLET PO SCH ×3 (10:59→21:02)
[2020-01-20] MEDS: carvediloL 25 MG TABLET PO SCH ×2 (10:59→21:03)
[2020-01-20] MEDS: POTASSIUM CHLORIDE 10 MEQ TABLET PO SCH ×2 (11:00→21:03)
[2020-01-20] MEDS: CLOPIDOGREL 75 MG TABLET PO SCH (11:00)
[2020-01-20] MEDS: PANTOPRAZOLE 40 MG TABLET PO SCH ×2 (11:00→21:03)
[2020-01-20] MEDS ORDERED: LIDOCAINE 1%/EPI INJ 20 ML VIAL ONE (11:35)
[2020-01-20] MEDS ORDERED: HEPARIN/NACL 0.9% 2 UNITS/ML 1,000 ML IV ONE (11:35)
[2020-01-20] MEDS ORDERED: DIAZEPAM 5 MG TABLET PO ONE (12:01)
[2020-01-20] MEDS ORDERED: diphenhydrAMINE CAP 50 MG CAPSULE PO ONE (12:01)
[2020-01-20] MEDS ORDERED: fentaNYL 100 MCG/2 ML VIAL ONE (12:02)
[2020-01-20] MEDS ORDERED: MIDAZOLAM 2 MG/2 ML VIAL ONE (12:02)
[2020-01-20] MEDS ORDERED: LIDOCAINE 1% 20 ML VIAL ONE (12:57)
[2020-01-20] MEDS ORDERED: VERAPAMIL 5 MG/2 ML VIAL ONE (12:58)
[2020-01-20] MEDS ORDERED: NITROGLYCERIN DRIP 50 MG/250 ML BOTTLE IV ONE (12:58)
[2020-01-20] MEDS ORDERED: HEPARIN/NACL 0.9% 2 UNITS/ML 500 ML IV ONE ×2 (13:00→13:22)
[2020-01-20] MEDS ORDERED: ENOXAPARIN 60 MG/0.6 ML SYRINGE ONE (13:09)
[2020-01-20] MEDS ORDERED: hydrALAZINE 20 MG/1 ML VIAL ONE (13:24)
[2020-01-20] MEDS ORDERED: ceFAZolin 1,000 MG VIAL ONE (13:30)
[2020-01-20] MEDS ORDERED: FUROSEMIDE 40 MG/4 ML VIAL IV ONE (13:56)
[2020-01-20] MEDS: FUROSEMIDE 40 MG/4 ML VIAL IV SCH (17:16)
[2020-01-20] MEDS: LATANOPROST 0.005% OPH SOLN 2.5 ML BOTTLE BOTH EYES SCH (20:59)
[2020-01-21 06:06] LABS: Hematocrit 29.4 VOL% (35.7-47.0); Hemoglobin 9.3 GM/DL (12.0-16.0); Immature Granulocytes % 0.5 %; Immature Granulocytes Absolute 0.03 #; Lymphocytes # 0.6 10*3/uL (1.4-4.0); Lymphocytes % 9.3 % (21.3-54.2); Mean Corpuscular HGB Conc 31.6 GM/DL (32-36); Mean Corpuscular Volume 82.8 FL (87-102); Mean Platelet Volume 10.8 FL (9.6-12.0); Monocytes % 4.6 % (1.7-12.7); Neutrophils % 85.6 % (38.7-73.9); Platelet Count 196 T/CUMM (130-400); Red Blood Count 3.55 MC/CUMM (3.8-5.5); Red Cell Distribution Width 14.4 % (9.3-17.3)
[2020-01-21 06:21] LABS: Calcium 8.5 MG/DL (8.5-10.1)
[2020-01-21 06:23] LABS: Calcium 8.6 MG/DL (8.5-10.1)
[2020-01-21] MEDS: ROSUVASTATIN 20 MG TABLET PO SCH (10:23)
[2020-01-21] MEDS: LEFLUNOMIDE 10 MG TABLET PO SCH (10:24)
[2020-01-21] MEDS: PANTOPRAZOLE 40 MG TABLET PO SCH (10:25)
[2020-01-21] MEDS: POTASSIUM CHLORIDE 10 MEQ TABLET PO SCH (10:25)
[2020-01-21] MEDS: ISOSORBIDE DINITRATE 20 MG TABLET PO SCH (10:25)
[2020-01-21] MEDS: ASPIRIN EC 81 MG TABLET PO SCH (10:25)
[2020-01-21] MEDS: CLOPIDOGREL 75 MG TABLET PO SCH (10:26)
[2020-01-21] MEDS: busPIRone 10 MG TABLET PO SCH (10:26)
[2020-01-21] MEDS: carvediloL 25 MG TABLET PO SCH (10:26)
[2020-01-21] MEDS: FUROSEMIDE 40 MG/4 ML VIAL IV SCH (10:27)
[2020-01-21] MEDS: FAMOTIDINE 20 MG/2 ML VIAL IV SCH (10:30)
[2020-01-21] MEDS: INSULIN LISPRO 100 UNIT/ML SUBCUT SCH ×4 (10:31→13:20)
[2020-01-21] MEDS: SODIUM CHLORIDE 0.45% 1,000 ML IV SCH (10:31)
[2020-01-21] MEDS: methylPREDNISolone SOD SUC 125 MG/2 ML VIAL IV SCH (10:43)
[2020-01-21 11:27] LABS: Bacteria,Urine Occasional /HPF (Few); Bilirubin,Urine Negative (Negative); Blood, Urine Small mg/dL (Negative); Glucose,Urine (UA) >=500 mg/dL (Negative); Hyaline Casts,Urine 1 /LPF (0-3); Ketones,Urine Negative (Negative); Mucus,Urine Occasional /LPF (Occasional); Nitrite,Urine Negative (Negative); Protein,Urine >=500 MG/DL; RBC,Urine 20 /HPF (0-4); Squamous Epithelial Cell,Urine Occasional /HPF (0-10); Urine Appearance CLEAR (Clear); Urine Color Yellow (Yellow); Urine Specific Gravity 1.024 (1.001-1.035); Urine Urobilinogen < 2.0 EU/DL (0.2-1.0); WBC,Urine 4 /HPF (0-6)
[2020-01-21 12:05] VITALS: BP 140/61
== END 2020-01-21 13:46 | disposition home or self-care (01) ==
LOC: N.TELEN 10:34 → INTOOBSV 10:34
PROVIDERS: ADMIT Internal Medicine Interventional Cardiology; ATTEND Internal Medicine Interventional Cardiology